=== PATIENT | female | born 1995 | race Hispanic/Latino ===

== ENCOUNTER 2018-10-04 23:22 | Emergency (ER) | payer OTHER ==
[~2018-10-04] VITALS: Ht 157.5 cm; Wt 48.6 kg
[2018-10-04] MEDS ORDERED: IBUP40TA PO (23:26)
[2018-10-05 00:25] LABS: BASO % 0.2 % (0.0-1.0); EOS # 0.1 10^3/uL (0.0-0.50); EOS % 1.1 % (0.0-3.0); HEMATOCRIT 38.7 % (36.0-47.0); HEMOGLOBIN 13.4 g/dl (12.0-15.5); LYMPH # 2.7 10^3/uL (1.5-6.5); LYMPH % 31.9 % (24.0-44.0); MEAN CORPUSCULAR HEMOGLOBIN 31.6 pg (27.0-33.0); MEAN CORPUSCULAR HGB CONC 34.6 g/dl (32.0-36.5); MEAN CORPUSCULAR VOLUME 91.3 fl (80.0-96.0); MONO # 0.7 10^3/uL (0.0-0.8); MONO % 8.2 % (0.0-5.0); NEUTROPHILS # 4.9 10^3/uL (1.8-7.7); NEUTROPHILS % 58.4 % (36.0-66.0); PLATELET COUNT, AUTOMATED 215 10^3/uL (150-450); RED BLOOD COUNT 4.24 10^6/uL (4.00-5.40); WHITE BLOOD COUNT 8.3 10^3/uL (4.0-10.0)
[2018-10-05 00:38] LABS: INR 1.03; PROTHROMBIN TIME 13.2 SECONDS (11.8-14.0)
[2018-10-05] MEDS ORDERED: ISOVUE-370 76% 100ML VIAL (Q9967) As Ordered ONE (01:04)
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
[2018-10-05] MEDS ORDERED: NORC1TAB7 PO (01:54)
[2018-10-05] MEDS ORDERED: ONDA4TAB5 PO (01:54)
[2018-10-05] MEDS ORDERED: ONDANSETRON 4 MG ORAL DISINTEGRATING TAB (Q0162 PER 1MG) PO ONE (02:00)
[2018-10-05] MEDS ORDERED: NORCO 5/325MG TABLET (BULK FOR ED) PO ONE (02:00)
[2018-10-05 02:08] VITALS: BP 131/75
== END 2018-10-05 02:09 | disposition home or self-care (01) ==
LOC: M ED 23:22
DX: S16.1XXA Strain of muscle, fascia and tendon at neck level, initial encounter (principal); R10.9 Unspecified abdominal pain; V43.54XA Car driver injured in collision with van in traffic accident, initial encounter; Y92.9 Unspecified place or not applicable; Y93.9 Activity, unspecified; Y99.9 Unspecified external cause status
CPT/HCPCS: 70450; 72125; 74177; 80047; 84702; 85025; 85610; 85730; 86850; 86900; 86901; 99284; Q0162; Q9967

== ENCOUNTER 2018-11-10 11:01 | Emergency (ER) | payer OTHER ==
[~2018-11-10] VITALS: Ht 157.5 cm; Wt 50.0 kg
[~2018-11-10 11:01] MED LIST: IBUP40TA PO; NORC1TAB7 PO; ONDA4TAB5 PO
[2018-11-10] MEDS ORDERED: CYCL5TAB PO (11:06)
[2018-11-10 11:41] LABS: BASO % 0.4 % (0.0-1.0); EOS # 0.1 10^3/uL (0.0-0.50); EOS % 0.7 % (0.0-3.0); HEMATOCRIT 35.7 % (36.0-47.0); HEMOGLOBIN 12.6 g/dl (12.0-15.5); LYMPH # 2.4 10^3/uL (1.5-6.5); LYMPH % 32.1 % (24.0-44.0); MEAN CORPUSCULAR HEMOGLOBIN 31.7 pg (27.0-33.0); MEAN CORPUSCULAR HGB CONC 35.3 g/dl (32.0-36.5); MEAN CORPUSCULAR VOLUME 89.7 fl (80.0-96.0); MONO # 0.6 10^3/uL (0.0-0.8); MONO % 8.5 % (0.0-5.0); NEUTROPHILS # 4.3 10^3/uL (1.8-7.7); PLATELET COUNT, AUTOMATED 197 10^3/uL (150-450); RED BLOOD COUNT 3.98 10^6/uL (4.00-5.40); WHITE BLOOD COUNT 7.4 10^3/uL (4.0-10.0)
--- NOTE | 2018-11-10 11:58 | REP ---
Clinical: Acute chest pain . Comparison: None . Technique: PA and lateral. Findings: The mediastinum and cardiac silhouette are normal. The lung whitfield are clear and without acute consolidation, effusion, or pneumothorax. The skeletal structures are intact and normal. Impression: 1. No acute cardiopulmonary process. Electronically Signed by Tremaine Glynn MD 11/10/2018 11:50 A
[2018-11-10 12:06] LABS: BLOOD UREA NITROGEN 7 MG/DL (7-18); CALCIUM LEVEL 9.5 MG/DL (8.5-10.1); CARBON DIOXIDE LEVEL 26 MEQ/L (21-32); CHLORIDE LEVEL 110 MEQ/L (98-107); GLOMERULAR FILTRATION RATE > 60.0 (>60); GLUCOSE, FASTING 87 MG/DL (70-100); POTASSIUM SERUM 4.5 MEQ/L (3.5-5.1); SODIUM LEVEL 142 MEQ/L (136-145)
[2018-11-10 13:13] LABS: CK-MB VALUE MASS < 1.0 NG/ML (<3.6); CPK CREATINE PHOSPHOKINASE 57 U/L (26-192); MB/CK RELATIVE INDEX 1.75 (< OR =4)
[2018-11-10] MEDS ORDERED: GI COCKTAIL 50ML BTL(HYOSCYAMINE/MAALOX/LIDOCAINE VISCOUS)(1:3:1) PO ONE (14:30)
[2018-11-10 14:35] VITALS: BP 117/69
[2018-11-10] MEDS ORDERED: PROT1TAB2 PO (14:57)
[2018-11-10] MEDS ORDERED: CARA1TAB6 PO (14:57)
--- NOTE | 2018-11-11 19:28 | ECGEPIP ---
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
== END 2018-11-10 15:03 | disposition home or self-care (01) ==
LOC: M ED 11:01
DX: K29.60 Other gastritis without bleeding (principal); T39.315A Adverse effect of propionic acid derivatives, initial encounter; Z79.1 Long term (current) use of non-steroidal anti-inflammatories (NSAID); Z87.820 Personal history of traumatic brain injury

== ENCOUNTER 2019-12-15 06:05 | Day surgery (SDC) | payer OTHER ==
[~2019-12-15] VITALS: Ht 157.5 cm; Wt 48.1 kg
[~2019-12-15 06:05] MED LIST changes: +ADDE10CA3 PO; +CARA1TAB6 PO; +CYCL5TAB PO; +LIDOCAINE 1% MDV 20ML VIAL SQ PRN; +ONDA-83 PO; -ONDA4TAB5 PO; +PROT1TAB2 PO
[2019-12-15] MEDS ORDERED: CETACAINE SPRAY 5GM As Ordered ONE (07:09)
[2019-12-15] MEDS ORDERED: EPINEPHrine 1MG/ML INJ 30ML MD-VIAL As Ordered ONE (07:09)
[2019-12-15] MEDS ORDERED: LIDOCAINE 2% 100MG/5ML SDV (FOR ANES.) As Ordered ONE (07:22)
[2019-12-15] MEDS ORDERED: ROCURONIUM BROMIDE 50 MG/5 ML VIAL As Ordered ONE (07:22)
[2019-12-15] MEDS ORDERED: MIDAZOLAM INJ 2MG/2ML VIAL (J2250 PER 1MG) As Ordered ONE (07:22)
[2019-12-15] MEDS ORDERED: propofoL 200 MG/20 ML VIAL As Ordered ONE (07:22)
[2019-12-15] MEDS ORDERED: dexameTHASONE 4 MG/ML 1ML VIAL (J1100 PER 1MG) As Ordered ONE (07:22)
[2019-12-15] MEDS ORDERED: ONDANSETRON 4MG/2ML VIAL As Ordered ONE (07:22)
[2019-12-15] MEDS ORDERED: fentaNYL 100 MCG/2 ML INJECTION (J3010) As Ordered ONE (07:22)
[2019-12-15] MEDS ORDERED: SUGAMMADEX SODIUM 500 MG/5 ML VIAL (BRIDION) As Ordered ONE (07:52)
[2019-12-15] MEDS ORDERED: ONDANSETRON 4MG/2ML VIAL IV PRN (08:45)
[2019-12-15] MEDS ORDERED: LR 1,000 ML IV SCH (08:45)
[2019-12-15] MEDS ORDERED: LR 1,000 ML IV ONE (08:45)
[2019-12-15] MEDS ORDERED: ACETAMINOPHEN TAB 650MG DOSE (2X325MG) PO PRN (08:45)
[2019-12-15] MEDS ORDERED: HYDROcodone/APAP LIQUID 7.5-325MG 15ML UDC (LORTAB ELIXIR) PO PRN (09:45)
[2019-12-15 09:50] VITALS: BP 110/64
== END 2019-12-15 09:55 | disposition home or self-care (01) ==
LOC: M SDC 06:05
PROVIDERS: ATTEND Specialist
DX: D10.1 Benign neoplasm of tongue (principal); Z88.0 Allergy status to penicillin; Z91.010 Allergy to peanuts; Z79.899 Other long term (current) drug therapy; I45.81 Long QT syndrome; R00.2 Palpitations
CPT/HCPCS: 31535; 81025; 88305; J1100; J2250; J2405; J3010

== ENCOUNTER 2019-12-23 00:26 | Emergency (ER) | payer OTHER ==
[~2019-12-23] VITALS: Ht 157.5 cm; Wt 50.2 kg
[~2019-12-23 00:26] MED LIST changes: -LIDOCAINE 1% MDV 20ML VIAL SQ PRN
[2019-12-23] MEDS ORDERED: LORazepam 2 MG/ML VIAL IV STA (02:16)
[2019-12-23 02:25] LABS: BASO % 0.5 % (0.0-1.0); EOS % 0.5 % (0.0-3.0); LYMPH # 2.9 10^3/uL (1.5-5.0); LYMPH % 46.7 % (24.0-44.0); MEAN CORPUSCULAR HEMOGLOBIN 31.3 pg (27.0-33.0); MEAN CORPUSCULAR HGB CONC 35.1 g/dl (32.0-36.5); MEAN CORPUSCULAR VOLUME 88.9 fl (80.0-96.0); MONO # 0.6 10^3/uL (0.0-0.8); MONO % 9.7 % (0.0-5.0); NEUTROPHILS # 2.6 10^3/uL (1.5-8.5); NEUTROPHILS % 42.4 % (36.0-66.0); PLATELET COUNT, AUTOMATED 199 10^3/uL (150-450); RED BLOOD COUNT 4.16 10^6/uL (4.00-5.40); WHITE BLOOD COUNT 6.2 10^3/uL (4.0-10.0)
[2019-12-23] MEDS ORDERED: NS 1,000 ML IV ONE (02:30)
[2019-12-23 02:38] LABS: BLOOD UREA NITROGEN 7 MG/DL (7-18); CALCIUM LEVEL 9.3 MG/DL (8.5-10.1); CARBON DIOXIDE LEVEL 24 MEQ/L (21-32); CHLORIDE LEVEL 111 MEQ/L (98-107); CK-MB VALUE MASS < 1.0 NG/ML (<3.6); CPK CREATINE PHOSPHOKINASE 61 U/L (26-192); CREATININE FOR GFR 0.68 MG/DL (0.55-1.30); GLOMERULAR FILTRATION RATE > 60.0 (>60); GLUCOSE, FASTING 89 MG/DL (70-100); MB/CK RELATIVE INDEX 1.64 (< OR =4); POTASSIUM SERUM 3.8 MEQ/L (3.5-5.1); SODIUM LEVEL 141 MEQ/L (136-145); TROPONIN I < 0.02 NG/ML (< 0.10)
[2019-12-23 02:42] LABS: HCG, SERUM QUALITATIVE NEGATIVE (NEGATIVE)
--- NOTE | 2019-12-23 04:02 | REPVR ---
PROCEDURE INFORMATION: Exam: XR Chest, 1 View Exam date and time: 12/23/2019 3:33 AM Age: 24 years old Clinical indication: Other: Cp; Additional info: Chest pain TECHNIQUE: Imaging protocol: XR of the chest Views: 1 view. COMPARISON: CR Chest, 2 view PA, Lat 11/10/2018 11:44 AM FINDINGS: Lungs: Unremarkable. No consolidation. Pleural space: Unremarkable. No pleural effusion. No pneumothorax. Heart/Mediastinum: Unremarkable. No cardiomegaly. Bones/joints: Unremarkable. IMPRESSION: No acute findings. Electronically signed by: Yoana Pizarro On 12/23/2019 04:01:55 AM
[2019-12-23 04:48] VITALS: BP 110/82
--- NOTE | 2019-12-28 19:41 | ECGEPIP ---
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
== END 2019-12-23 04:49 | disposition home or self-care (01) ==
LOC: M ED 00:26
DX: I49.3 Ventricular premature depolarization (principal); R11.0 Nausea; R06.02 Shortness of breath; Z88.0 Allergy status to penicillin; Z91.010 Allergy to peanuts; Z79.899 Other long term (current) drug therapy
CPT/HCPCS: 71045; 80048; 82550; 82553; 84484; 84703; 85025; 85379; 93005; 93041; 94760; 96374; 99284; J2060

== ENCOUNTER 2020-01-27 14:14 | Emergency (ER) | payer OTHER ==
[~2020-01-27] VITALS: Ht 157.5 cm; Wt 46.9 kg
[2020-01-27] MEDS ORDERED: PRIL20TA2 (14:21)
[2020-01-27] MEDS ORDERED: ZOFR4TAB16 (14:21)
[2020-01-27 15:29] LABS: BASO % 0.4 % (0.0-1.0); EOS % 0.4 % (0.0-3.0); HEMATOCRIT 35.7 % (36.0-47.0); HEMOGLOBIN 11.8 g/dl (12.0-15.5); LYMPH # 2.5 10^3/uL (1.5-5.0); MEAN CORPUSCULAR HEMOGLOBIN 30.4 pg (27.0-33.0); MEAN CORPUSCULAR HGB CONC 33.1 g/dl (32.0-36.5); MONO # 0.4 10^3/uL (0.0-0.8); MONO % 7.8 % (0.0-5.0); NEUTROPHILS # 1.9 10^3/uL (1.5-8.5); NEUTROPHILS % 39.4 % (36.0-66.0); PLATELET COUNT, AUTOMATED 161 10^3/uL (150-450); RED BLOOD COUNT 3.88 10^6/uL (4.00-5.40); WHITE BLOOD COUNT 4.8 10^3/uL (4.0-10.0)
[2020-01-27 15:57] LABS: HCG, SERUM QUALITATIVE NEGATIVE (NEGATIVE)
[2020-01-27 15:58] LABS: ALBUMIN 4.2 GM/DL (3.2-5.2); ALT/SGPT 16 U/L (12-78); BILIRUBIN,DIRECT 0.3 MG/DL (0.0-0.2); BILIRUBIN,TOTAL 1.1 MG/DL (0.2-1.0); BLOOD UREA NITROGEN 12 MG/DL (7-18); CALCIUM LEVEL 9.1 MG/DL (8.5-10.1); CARBON DIOXIDE LEVEL 27 MEQ/L (21-32); CHLORIDE LEVEL 112 MEQ/L (98-107); CREATININE FOR GFR 0.78 MG/DL (0.55-1.30); GLOMERULAR FILTRATION RATE > 60.0 (>60); GLUCOSE, FASTING 86 MG/DL (70-100); LIPASE 89 U/L (73-393); POTASSIUM SERUM 4.1 MEQ/L (3.5-5.1); SODIUM LEVEL 144 MEQ/L (136-145)
[2020-01-27] MEDS ORDERED: NS 500 ML IV ONE (16:30)
[2020-01-27] MEDS ORDERED: PANTOPRAZOLE 40MG VIAL (C9113 PER 1) IV ONE (16:30)
[2020-01-27] MEDS ORDERED: GI COCKTAIL 50ML BTL(HYOSCYAMINE/MAALOX/LIDOCAINE VISCOUS)(1:3:1) PO ONE (16:30)
--- NOTE | 2020-01-27 16:53 | REPVR ---
PROCEDURE INFORMATION: Exam: XR Complete Acute Abdomen Series Exam date and time: 01/27/2020 4:26 PM Age: 24 years old Clinical indication: Abdominal pain TECHNIQUE: Imaging protocol: XR complete acute abdomen series, including 2 or more views of the abdomen and a single view chest. COMPARISON: CR PORTABLE CHEST X-RAY 12/23/2019 3:30 AM FINDINGS: Lungs: The lungs appear clear. Pleural space: There is no evidence of pneumothorax or pleural effusion. Heart/Mediastinum: The heart is normal in size. Gastrointestinal tract: There is gas scattered throughout the bowel with no evidence of obstruction. Intraperitoneal space: There is no evidence of pneumoperitoneum. Bones/joints: Normal. No acute fracture. Soft tissues: Normal. Other findings: There is no evidence of pathologic calcification. IMPRESSION: No evidence of bowel obstruction. Electronically signed by: Jose Luis Muniz On 01/27/2020 16:53:47 PM
--- NOTE | 2020-01-27 17:20 | REPVR ---
PROCEDURE INFORMATION: Exam: US Abdomen, Limited; Right Upper Quadrant Exam date and time: 01/27/2020 4:33 PM Age: 24 years old Clinical indication: Abdominal pain; Acute; Additional info: Epigastric, ruq ttp, positive padron's sign TECHNIQUE: Imaging protocol: US abdomen. Real time ultrasound with image documentation. Limited exam focused on the right upper quadrant. COMPARISON: CT ABD/PEL W/IV CONTRAST ONLY 10/05/2018 1:13 AM FINDINGS: Liver: There is uniform echogenicity through the liver with no evidence of biliary dilatation. Normal appearing liver. Gallbladder: The gallbladder is fluid filled and there is no evidence of gallstones. There is a fold at the neck of the gallbladder. There is no evidence of gallstones. Common bile duct: Common bile duct is normal in size measuring 3 mm. Pancreas: Normal appearing pancreas. Right kidney: The right kidney measures 9.6 cm in length by 3 cm in thickness and there is no evidence of hydronephrosis. IMPRESSION: Normal appearing ultrasound right upper quadrant. Electronically signed by: Jsoe Luis Muniz On 01/27/2020 17:20:00 PM
[2020-01-27 17:46] LABS: CK-MB VALUE MASS < 1.0 NG/ML (<3.6); CPK CREATINE PHOSPHOKINASE 37 U/L (26-192); TROPONIN I < 0.02 NG/ML (< 0.10)
[2020-01-27 17:54] LABS: ERYTHROCYTE SEDIMENTATION RATE 3 mm/hr (0-20)
[2020-01-27] MEDS ORDERED: ACETAMINOPHEN 500 MG TAB PO ONE (18:45)
[2020-01-27] MEDS: GASTROGRAFIN SOLUTION 30ML PO SCH ×2 (18:50→20:19)
--- NOTE | 2020-01-27 19:44 | ECGEPIP ---
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
[2020-01-27] MEDS ORDERED: ISOVUE-370 76% 100ML VIAL As Ordered ONE (20:17)
--- NOTE | 2020-01-27 21:28 | REPVR ---
PROCEDURE INFORMATION: Exam: CT Abdomen And Pelvis With Contrast Exam date and time: 01/27/2020 8:29 PM Age: 24 years old Clinical indication: Abdominal pain; Generalized; Additional info: Diffuse abd pain, mucous stools, R/O ibd TECHNIQUE: Imaging protocol: Computed tomography of the abdomen and pelvis with intravenous contrast. Radiation optimization: All CT scans at this facility use at least one of these dose optimization techniques: automated exposure control; mA and/or kV adjustment per patient size (includes targeted exams where dose is matched to clinical indication); or iterative reconstruction. Contrast material: ISOVUE 370; Contrast volume: 100 ml; Contrast route: INTRAVENOUS (IV); COMPARISON: CT ABD/PEL W/IV CONTRAST ONLY 10/05/2018 1:13 AM FINDINGS: Lungs: Clear appearing lung bases. Heart: The heart is normal in size and there is no pericardial effusion. Liver: Low density through the liver may be the result of mild fatty infiltration. Gallbladder and bile ducts: There is a crescent of fluid along the anterior aspect of the gallbladder making this suspicious for cholecystitis. Correlation with a HIDA scan might be helpful. Normal common bile duct. Pancreas: Normal pancreas. Spleen: Normal spleen. Adrenals: Normal adrenal glands. Kidneys and ureters: There is enhancement of both kidneys. Stomach and bowel: The cecum is in the right pelvis and there is no evidence of inflammation. There is no evidence of bowel obstruction. Appendix: No evidence of appendicitis. Intraperitoneal space: There is no evidence of pneumoperitoneum. Vasculature: There is opacification of the aorta. There is opacification of the SMV and the SMA. Lymph nodes: Unremarkable. No enlarged lymph nodes. Urinary bladder: Normal appearing urinary bladder. Reproductive: Normal size uterus. Follicular cysts of both ovaries. Bones/joints: There is no evidence of bony abnormality. Soft tissues: Unremarkable. IMPRESSION: There is a crescent of fluid along the anterior aspect of the gallbladder and this may be the result of cholecystitis. Correlation with a HIDA scan might be helpful. Electronically signed by: Jose Luis Muniz On 01/27/2020 21:28:32 PM
[2020-01-27 22:20] VITALS: BP 107/72
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
== END 2020-01-27 23:39 | disposition home or self-care (01) ==
LOC: M ED 14:14
DX: K52.9 Noninfective gastroenteritis and colitis, unspecified (principal); Z87.820 Personal history of traumatic brain injury; K21.9 Gastro-esophageal reflux disease without esophagitis; R94.31 Abnormal electrocardiogram [ECG] [EKG]; Z91.010 Allergy to peanuts; Z88.0 Allergy status to penicillin; Z79.899 Other long term (current) drug therapy
CPT/HCPCS: 36415; 74021; 74177; 76705; 80048; 80076; 81001; 82550; 82553; 83690; 84484; 84703; 85025; 85652; 86140; 93005; 96374; 99284; C9113; Q9963; Q9967

== ENCOUNTER 2020-02-01 17:32 | Emergency (ER) | payer OTHER ==
[~2020-02-01] VITALS: Ht 157.5 cm; Wt 48.6 kg
[~2020-02-01 17:32] MED LIST changes: +PRIL20TA2; +ZOFR4TAB16
[2020-02-01] MEDS ORDERED: ACET325T43 PO (17:51)
[2020-02-01] MEDS ORDERED: NS 1,000 ML IV ONE (19:15)
[2020-02-01] MEDS ORDERED: KETOROLAC 30 MG/ML 1ML VIAL IV ONE (19:15)
[2020-02-01] MEDS ORDERED: ONDANSETRON 4MG/2ML VIAL IV ONE (19:15)
[2020-02-01 19:37] LABS: BASO % 0.3 % (0.0-1.0); EOS % 0.2 % (0.0-3.0); HEMATOCRIT 37.2 % (36.0-47.0); HEMOGLOBIN 12.8 g/dl (12.0-15.5); LYMPH # 1.8 10^3/uL (1.5-5.0); LYMPH % 30.3 % (24.0-44.0); MEAN CORPUSCULAR HEMOGLOBIN 30.8 pg (27.0-33.0); MEAN CORPUSCULAR HGB CONC 34.4 g/dl (32.0-36.5); MEAN CORPUSCULAR VOLUME 89.6 fl (80.0-96.0); MONO # 0.4 10^3/uL (0.0-0.8); MONO % 6.9 % (0.0-5.0); NEUTROPHILS # 3.6 10^3/uL (1.5-8.5); NEUTROPHILS % 62.1 % (36.0-66.0); PLATELET COUNT, AUTOMATED 167 10^3/uL (150-450); RED BLOOD COUNT 4.15 10^6/uL (4.00-5.40); WHITE BLOOD COUNT 5.8 10^3/uL (4.0-10.0)
[2020-02-01 20:10] LABS: ALBUMIN 4.2 GM/DL (3.2-5.2); BILIRUBIN,DIRECT 0.2 MG/DL (0.0-0.2); BILIRUBIN,TOTAL 0.6 MG/DL (0.2-1.0); TOTAL PROTEIN 7.4 GM/DL (6.4-8.2)
--- NOTE | 2020-02-01 21:08 | REPVR ---
PROCEDURE INFORMATION: Exam: US Abdomen, Limited; Right Upper Quadrant Exam date and time: 02/01/2020 8:20 PM Age: 24 years old Clinical indication: Abdominal pain; Epigastric; Additional info: Epigastric pain, nv, lightheaded TECHNIQUE: Imaging protocol: US abdomen. Real time ultrasound with image documentation. Limited exam focused on the right upper quadrant. COMPARISON: GALLBLADDER US 01/27/2020 4:42 PM FINDINGS: Liver: Normal. No masses. Gallbladder: Normal. No gallstones. There is no gallbladder wall thickening. Common bile duct: Normal. No stones. No dilation. Pancreas: Visualized pancreas is unremarkable. Right kidney: Normal. No mass. No hydronephrosis. IMPRESSION: No acute findings. Electronically signed by: Isiah Milian On 02/01/2020 21:08:50 PM
[2020-02-01] MEDS ORDERED: REGL10TA6 PO (21:13)
[2020-02-01 21:51] VITALS: BP 123/78
== END 2020-02-01 21:58 | disposition home or self-care (01) ==
LOC: M ED 17:32
DX: R10.13 Epigastric pain (principal); R10.11 Right upper quadrant pain; R11.2 Nausea with vomiting, unspecified; R42 Dizziness and giddiness; K21.9 Gastro-esophageal reflux disease without esophagitis; D10.9 Benign neoplasm of pharynx, unspecified; Z91.010 Allergy to peanuts; Z88.0 Allergy status to penicillin; Z79.899 Other long term (current) drug therapy
CPT/HCPCS: 76705; 80047; 80076; 83605; 83690; 84702; 85025; 96374; 96375; 99284; J1885; J2405

== ENCOUNTER → 2020-06-29 | Outpatient (CLI) | payer OTHER ==
[~2020-06-29] MED LIST changes: +ACET325T43 PO; +IBUP1TAB5 PO; -IBUP40TA PO; +ISOVUE-370 76% 100ML VIAL As Ordered ONE; +REGL10TA6 PO
--- NOTE | 2020-06-29 08:55 | REPVR ---
PROCEDURE INFORMATION: Exam: CT Neck With Contrast Exam date and time: 06/29/2020 8:34 AM Age: 24 years old Clinical indication: Pain; Other: Sialoadentitis; Additional info: Sialoadenitis TECHNIQUE: Imaging protocol: Computed tomography images of the neck with intravenous contrast. Radiation optimization: All CT scans at this facility use at least one of these dose optimization techniques: automated exposure control; mA and/or kV adjustment per patient size (includes targeted exams where dose is matched to clinical indication); or iterative reconstruction. Contrast material: ISOVUE 370; Contrast volume: 75 ml; Contrast route: INTRAVENOUS (IV); COMPARISON: CT Neck without contrast 11/04/2019 7:44 PM FINDINGS: Nasopharynx: Unremarkable. Oropharynx: Unremarkable. No significant tonsillar enlargement. Hypopharynx: Unremarkable. Larynx: Unremarkable. Normal epiglottis. Retropharyngeal space: Unremarkable. Submandibular/Parotid glands: Normal. Glands are normal in size. Thyroid: Normal. No enlarged or calcified nodules. Lymph nodes: Unremarkable. No lymphadenopathy. Trachea: Visualized trachea is unremarkable. Lungs: Unremarkable as visualized. Bones/joints: Unremarkable. No acute fracture. Soft tissues: Unremarkable. No significant soft tissue swelling. IMPRESSION: No acute findings. Electronically signed by: Eddie Ortiz On 06/29/2020 08:55:09 AM
== END ==
LOC: M RAD 08:21
PROVIDERS: ATTEND Specialist
DX: K11.20 Sialoadenitis, unspecified (principal)
CPT/HCPCS: 70491; Q9967